=== PATIENT | female | born 1960 | race Caucasian/White ===

== ENCOUNTER → 2016-11-12 | Outpatient (CLI) | payer OTHER ==
[~2016-11-12] MED LIST: LISINOPRIL-HCT1 EAC1 PO
== END | disposition disaster alternative care site (69) ==
LOC: GBCOE 14:28
DX: Z12.31 Encounter for screening mammogram for malignant neoplasm of breast (principal)
CPT/HCPCS: G0202

== ENCOUNTER → 2016-11-15 | Outpatient (CLI) | payer OTHER | END | disposition disaster alternative care site (69) | LOC: GBCOE 13:50 | DX: R92.1 Mammographic calcification found on diagnostic imaging of breast (principal) | CPT/HCPCS: G0206; G0279 ==

== ENCOUNTER → 2016-11-26 | Outpatient (CLI) | payer OTHER | END | disposition disaster alternative care site (69) | LOC: GPOC 11-23 10:00 → GBCOE 09:19 → GPOC 09:19 | PROC: 0HBU3ZX Excision of Left Breast, Percutaneous Approach, Diagnostic (ICD-10-PCS; principal; 2016-11-26) | DX: R92.0 Mammographic microcalcification found on diagnostic imaging of breast (principal) | CPT/HCPCS: J7050 ==